=== PATIENT | male | born 1965 | race Caucasian/White ===

== ENCOUNTER 2017-08-26 07:30 | Inpatient (IN) | payer OTHER ==
[~2017-08-26] VITALS: Ht 176.5 cm; Wt 109.5 kg
[~2017-08-26 07:30] MED LIST: CeFAZolin 2 GM/DEXTROSE 50 ML IV ONE; LORA10TA7 PO; SODIUM CHLORIDE 0.9% 1,000 ML IV SCH; THIA100T67 PO; THIA50TA PO; [UNRECOGNIZED DRUG - CODE] IM
[2017-08-26] MEDS ORDERED: RINGERS SOLUTION,LACTATED 1,000 ML IV ONE ×3 (09:46→14:09)
[2017-08-26 11:54] LABS: BASOPHILS % (AUTO) 0.8 % (0.0-2.0); EOSINOPHILS % (AUTO) 4.1 % (1.0-6.0); HEMATOCRIT 47.4 % (41-53); HEMOGLOBIN 16.3 g/dL (13.5-17.5); LYMPHOCYTES # (AUTO) 1.5 K/uL (1.0-4.8); LYMPHOCYTES % (AUTO) 27.7 % (22.0-44.0); MEAN CORPUSCULAR HEMOGLOBIN 30.3 pg (26.0-34.0); MEAN CORPUSCULAR HGB CONC 34.5 G/dL (31.0-37.0); MEAN CORPUSCULAR VOLUME 88 fL (80-100); MONOCYTES # (AUTO) 0.6 K/uL (0.1-1.0); MONOCYTES % (AUTO) 10.7 % (2.0-9.0); NEUTROPHILS # (AUTO) 3.2 K/uL (1.8-7.7); NEUTROPHILS % (AUTO) 56.7 % (40.0-70.0); PLATELET COUNT (AUTO) 187 K/uL (150-450); RED CELL DISTRIBUTION WIDTH 13.4 % (11.5-14.5)
[2017-08-26] MEDS ORDERED: MIDAZOLAM HCL 2 MG/2 ML VIAL IVP ONE (12:00)
[2017-08-26] MEDS ORDERED: VITA-328 PO (12:00)
[2017-08-26] MEDS ORDERED: FentaNYL CITRATE-PF 100 MCG/2 ML VIAL IVP ONE (12:00)
[2017-08-26] MEDS ORDERED: LAMO25 PO (12:00)
[2017-08-26 12:04] LABS: CALCIUM, TOTAL 9.2 mg/dL (8.8-10.5); CREATININE 1.32 mg/dL (0.60-1.30)
[2017-08-26 12:06] LABS: PROTHROMBIN TIME 10.3 SEC (9.4-11.6)
[2017-08-26] MEDS ORDERED: BUPIVACAINE HCL/PF 0.5% 30 ML VIAL ONE (12:23)
[2017-08-26] MEDS ORDERED: VANCOMYCIN HCL 1 GM/VIAL ONE (12:23)
[2017-08-26] MEDS ORDERED: BUPIVACAINE/EPI/PF 0.5% 30 ML VIAL ONE (12:23)
[2017-08-26] MEDS ORDERED: SODIUM CHLORIDE 0.9% 0 ML ONE (12:23)
[2017-08-26] MEDS ORDERED: BACITRACIN 50,000 UNITS/VIAL ONE (12:24)
[2017-08-26] MEDS ORDERED: THROMBIN, BOVINE 20000 UNITS/VIAL POWDER TP ONE (12:24)
[2017-08-26] MEDS ORDERED: GELATIN SPONGE,ABSORBABLE 100 MM TP ONE (12:24)
[2017-08-26] MEDS ORDERED: CLINDAMYCIN 600 MG/D5% WATER 50 ML IV ONE (12:30)
[2017-08-26] MEDS ORDERED: BUPIVACAINE LIPOSOME/PF 1.3%-13.3MG/ML SUSPENSION 20 ML VIAL INJ ONE (12:30)
[2017-08-26] MEDS ORDERED: CLINDAMYCIN PHOS 150 MG/ML 4 ML VIAL ONE (12:46)
[2017-08-26] MEDS ORDERED: SODIUM CHLORIDE 0.9% 0 ML IV ONE (13:14)
[2017-08-26] MEDS ORDERED: LIDOCAINE HCL 1%/EPI 1:200,000/PF 30 ML VIAL ONE (13:39)
[2017-08-26] MEDS ORDERED: ALBUMIN HUMAN 25%-12.5GM/50ML 50 ML ONE (14:01)
[2017-08-26] MEDS ORDERED: FentaNYL CITRATE-PF 100 MCG/2 ML VIAL IVP PRN (14:15)
[2017-08-26] MEDS ORDERED: MEPERIDINE HCL/PF 25 MG/0.5 ML AMP IVP PRN (14:15)
[2017-08-26] MEDS ORDERED: HYDROmorphone 2 MG/ML SYRINGE IVP PRN (14:15)
[2017-08-26] MEDS ORDERED: HYDROmorphone 2 MG/ML SYRINGE ONE (15:18)
== END 2017-08-26 16:45 | disposition home or self-care (01) | DRG 520 ==
LOC: 4E 11:19
PROVIDERS: ADMIT Neurological Surgery; ATTEND Neurological Surgery
PROC: 0SB20ZZ Excision of Lumbar Vertebral Disc, Open Approach (ICD-10-PCS; 2017-08-26)
PROC: 01NB0ZZ Release Lumbar Nerve, Open Approach (ICD-10-PCS; principal; 2017-08-26 13:35)
DX: M48.061 Spinal stenosis, lumbar region without neurogenic claudication (principal); M51.26 Other intervertebral disc displacement, lumbar region
CPT/HCPCS: 86850; 86900; 86901; 87081; 88304; 93005; C9290; J1030; J1170; J2250; J3010; J3370; J3490; J7050; J7120; P9047; S0077